=== PATIENT | male | born 1995 | race Hispanic/Latino ===

== ENCOUNTER 2017-02-14 20:39 | Emergency (ER) | payer SELFPAY ==
--- NOTE | 2017-02-14 22:45 | RAD ---
AP AND OBLIQUE VIEWS RIGHT RIBS 02/14/17 HISTORY: Patient with fall with right sided rib pain. AP and oblique views right ribs demonstrates old healed right 6th rib fracture. No definite evidence of right rib fractures seen. IMPRESSION: Old healed right 6th rib fracture. No acute right rib abnormality seen. POS: [facility]
== END 2017-02-14 23:02 | disposition home or self-care (01) ==
LOC: ERS 20:39
DX: S29.9XXA Unspecified injury of thorax, initial encounter (principal); M41.9 Scoliosis, unspecified; F17.210 Nicotine dependence, cigarettes, uncomplicated; W17.89XA Other fall from one level to another, initial encounter

== ENCOUNTER 2017-07-12 22:45 | Emergency (ER) | payer SELFPAY | END 2017-07-13 00:10 | disposition home or self-care (01) | LOC: ERS 22:45 | DX: M75.22 Bicipital tendinitis, left shoulder (principal); F17.210 Nicotine dependence, cigarettes, uncomplicated | CPT/HCPCS: 99283 ==

== ENCOUNTER 2017-09-17 11:14 | Emergency (ER) | payer SELFPAY ==
--- NOTE | 2017-09-17 12:58 | RAD ---
RIGHT SHOULDER THREE VIEWS: CLINICAL HISTORY: Injury. Pain. COMPARISON: 06/07/2014 FINDINGS: The right shoulder is intact without fracture or dislocation. IMPRESSION: No acute osseous abnormality. POS: [facility]
== END 2017-09-17 12:50 | disposition home or self-care (01) ==
LOC: ERS 11:14
DX: M25.511 Pain in right shoulder (principal); M41.9 Scoliosis, unspecified; F17.210 Nicotine dependence, cigarettes, uncomplicated; W01.198A Fall on same level from slipping, tripping and stumbling with subsequent striking against other object, initial encounter

== ENCOUNTER 2017-09-27 21:45 | Emergency (ER) | payer SELFPAY ==
[2017-09-28] MEDS ORDERED: diphenhydrAMINE 50 MG/ML VIAL ONE (01:54)
[2017-09-28] MEDS ORDERED: Acetaminophen 500 MG TAB ONE (01:54)
[2017-09-28] MEDS ORDERED: Promethazine HCl 25 MG/ML VIAL ONE (01:54)
== END 2017-09-28 03:55 | disposition home or self-care (01) ==
LOC: ERS 21:45
DX: J32.9 Chronic sinusitis, unspecified (principal); F17.210 Nicotine dependence, cigarettes, uncomplicated
CPT/HCPCS: 96365; 96375; J1200; J2550

== ENCOUNTER 2017-12-12 22:56 | Emergency (ER) | payer SELFPAY | END 2017-12-12 23:25 | disposition home or self-care (01) | LOC: ERS 22:56 | DX: J01.90 Acute sinusitis, unspecified (principal); F17.210 Nicotine dependence, cigarettes, uncomplicated | CPT/HCPCS: 87081; 87430; 99283 ==

== ENCOUNTER 2018-07-08 21:35 | Emergency (ER) | payer SELFPAY ==
[2018-07-08 22:33] LABS: Bilirubin Negative (Negative); Blood, Urine Negative (Negative); Clarity CLEAR (Clear); Glucose, Urine (Dipstick) Negative (Negative); Leukocyte Negative (Negative); Nitrite Negative (Negative); Protein, Urine (Dipstick) Negative (Neg-Trace); Specific Gravity, Urine 1.025 (1.002-1.036); pH, Urine 6.5 (5.0-9.0)
[2018-07-08] MEDS ORDERED: Ketorolac Tromethamine 30 MG/ML VIAL ONE (22:39)
== END 2018-07-08 23:21 | disposition home or self-care (01) ==
LOC: ERS 21:35
DX: M54.9 Dorsalgia, unspecified (principal); G89.29 Other chronic pain; F17.210 Nicotine dependence, cigarettes, uncomplicated
CPT/HCPCS: 81003; 96372; J1885

== ENCOUNTER 2018-10-29 14:12 | Emergency (ER) | payer SELFPAY ==
--- NOTE | 2018-10-29 14:42 | RAD ---
Exam: Chest 2 views HISTORY:Chest pain Comparison: November 21, 2010 FINDINGS: Lungs: Patchy left perihilar opacity. Lungs are mildly hyperinflated Cardiac silhouette: Normal size Pulmonary vessels: Normal Pleural Spaces: Clear Pneumothorax: None There is pectus excavatum. Osseous abnormalities: None of acuity. IMPRESSION: Patchy left perihilar opacity could relate to atelectasis or pneumonitis. Correlate clini tasneem.
[2018-10-29 14:44] LABS: #Basophils 0.1 thou/uL (0.0-0.2); #Eosinphils 0.1 thou/uL (0.0-0.7); #Lymphocytes 2.5 thou/uL (1.20-3.40); #Monocytes 0.5 thou/uL (0.11-0.59); #Neutrophils 3.6 thou/uL (1.40-6.50); %Basophils 1.5 % (0.0-1.0); %Eosinophils 1.1 % (0.0-10.0); %Neutrophils 53.5 % (42.0-75.0); Hemoglobin 17.5 g/dL (14.0-18.0); Mean Corpuscular HGB CONC 34.1 g/dL (32.0-36.0); Mean Corpuscular Hemoglobin 31.7 pg (27.0-31.0); Mean Corpuscular Volume 92.9 fL (78.0-98.0); Mean Platelet Volume 8.4 fL (7.4-10.4); Platelet Count 180 thou/uL (130-400); Red Blood Cell (RBC) Count 5.53 mill/uL (4.70-6.10); White Blood Cell (WBC) Count 6.7 thou/uL (4.8-10.8)
[2018-10-29 15:05] LABS: ALT (SGPT) 23 U/L (8-55); AST (SGOT) 14 U/L (5-34); Albumin 4.5 g/dL (3.5-5.0); Alkaline Phosphatase 77 U/L (40-150); Anion Gap 9 mmol/L (10-20); BUN (Urea Nitrogen) 11 mg/dL (8.9-20.6); Bilirubin, Total 0.7 mg/dL (0.2-1.2); CK (CPK) 86 U/L (30-200); Calc. Creatinine Clearance 0 mL/min (70-130); Calcium 9.7 mg/dL (7.8-10.44); Carbon Dioxide 32 mmol/L (22-29); Chloride 103 mmol/L (98-107); Estimated GFR-MDRD 90; Globulin 2.8 g/dL (2.4-3.5); Glucose 82 mg/dL (70-105); Potassium 4.8 mmol/L (3.5-5.1); Protein, Total 7.3 g/dL (6.0-8.3); Sodium 139 mmol/L (136-145)
[2018-10-29] MEDS ORDERED: Ketorolac Tromethamine 60 MG/2 ML VIAL ONE (16:53)
--- NOTE | 2018-11-01 11:58 | EKG ---
Test Reason : ER INDICATION Blood Pressure : / mmHG Vent. Rate : 078 BPM Atrial Rate : 078 BPM P-R Int : 136 ms QRS Dur : 074 ms QT Int : 342 ms P-R-T Axes : 068 025 053 degrees QTc Int : 389 ms Normal sinus rhythm Nonspecific ST abnormality Abnormal ECG Confirmed by MARINA RODGERS D.O. ([id number]), mapping editor RITU KWON ([id number]) on 11/01/2018 11:58:42 AM Referred By: Confirmed By:MARINA RODGERS D.O.
== END 2018-10-29 17:05 | disposition home or self-care (01) ==
LOC: ERS 14:12
DX: R07.89 Other chest pain (principal); F17.210 Nicotine dependence, cigarettes, uncomplicated
CPT/HCPCS: 36415; 71046; 80053; 82550; 84484; 85025; 93005; 96372; J1885

== ENCOUNTER 2019-03-15 17:20 | Emergency (ER) | payer SELFPAY ==
[2019-03-15] MEDS ORDERED: Ketorolac Tromethamine 30 MG/ML VIAL ONE (18:18)
[2019-03-15] MEDS ORDERED: Lorazepam 1 MG TAB ONE (18:19)
== END 2019-03-15 18:40 | disposition home or self-care (01) ==
LOC: ERS 17:20
DX: M54.5 Low back pain (principal); M25.512 Pain in left shoulder; F17.210 Nicotine dependence, cigarettes, uncomplicated
CPT/HCPCS: 96372; 99283; J1885

== ENCOUNTER 2021-01-26 10:56 | Emergency (ER) | payer OTHER, SELFPAY ==
[2021-01-26 11:37] LABS: #Basophils 0.1 thou/uL (0.0-0.2); #Eosinphils 0.1 thou/uL (0.0-0.7); #Lymphocytes 3.2 thou/uL (1.20-3.40); #Neutrophils 9.9 thou/uL (1.40-6.50); %Basophils 0.7 % (0.0-1.0); %Eosinophils 0.6 % (0.0-10.0); %Lymphocytes 22.5 % (21.0-51.0); %Monocytes 7.2 % (0.0-10.0); Mean Corpuscular HGB CONC 35.5 g/dL (32.0-36.0); Mean Corpuscular Hemoglobin 32.6 pg (27.0-31.0); Mean Corpuscular Volume 91.8 fL (78.0-98.0); Mean Platelet Volume 7.9 fL (7.4-10.4); Platelet Count 231 thou/uL (130-400); RBC Distribution Width 11.3 % (11.5-14.5); White Blood Cell (WBC) Count 14.3 thou/uL (4.8-10.8)
[2021-01-26 12:00] LABS: Acetaminophen Less than 6.0 mcg/mL (10.0-30.0); Alcohol Less than 10 mg/dL (Less than 10); Salicylate Less than 8.0 mg/dL (15.0-30.0)
[2021-01-26 12:02] LABS: ALT (SGPT) 25 U/L (8-55); AST (SGOT) 23 U/L (5-34); Albumin 4.6 g/dL (3.5-5.0); Alkaline Phosphatase 79 U/L (40-110); Anion Gap 13 mmol/L (10-20); BUN (Urea Nitrogen) 17 mg/dL (8.9-20.6); Bilirubin, Total 0.9 mg/dL (0.2-1.2); Calc. Creatinine Clearance 0 mL/min (70-130); Calcium 10.3 mg/dL (7.8-10.44); Carbon Dioxide 27 mmol/L (22-29); Chloride 103 mmol/L (98-107); Globulin 2.9 g/dL (2.4-3.5); Glucose 104 mg/dL (70-105); Potassium 4.3 mmol/L (3.5-5.1); Protein, Total 7.5 g/dL (6.0-8.3); Sodium 139 mmol/L (136-145)
[2021-01-26] MEDS ORDERED: Ondansetron PF 4 MG/2 ML Vial ONE (12:53)
[2021-01-26] MEDS ORDERED: Morphine 4 MG/ML VIAL ONE (12:53)
[2021-01-26] MEDS ORDERED: Boostrix 0.5 ML (Tdap) VIAL ONE (12:55)
[2021-01-26] MEDS ORDERED: Ketorolac Tromethamine 30 MG/ML VIAL ONE ×2 (12:55→12:57)
[2021-01-26 12:56] LABS: Bilirubin Negative (Negative); Blood, Urine Negative (Negative); Clarity Clear (Clear); Glucose, Urine (Dipstick) Normal (Negative); Ketone, Urine 10 mg/dL (Negative); Leukocyte Negative Leu/uL (Negative); Nitrite Negative (Negative); Protein, Urine (Dipstick) Negative (Neg-Trace); Specific Gravity, Urine 1.028 (1.002-1.036); Urobilinogen Normal mg/dL (Less than 2); pH, Urine 5.5 (5.0-9.0)
[2021-01-26 12:59] LABS: Amphetamine Detected (NotDetected); Barbiturates Screen Not Detected (NotDetected); Benzodiazepine Screen Not Detected (NotDetected); Cocaine Metabolite Screen Not Detected (NotDetected); Methadone Not Detected (NotDetected); Methamphetamine Detected (NotDetected); Opiate Screen Not Detected (NotDetected); Oxycodone Screen Not Detected (NotDetected); Phencyclidine (PCP) Not Detected (NotDetected); THC/Cannabinoid Screen Detected (NotDetected); Tricyclic Screen Not Detected (NotDetected)
[2021-01-26] MEDS ORDERED: Bacitracin 1 PK ONE (13:00)
== END 2021-01-26 13:50 | disposition home or self-care (01) ==
LOC: ERS 10:56
DX: S00.03XA Contusion of scalp, initial encounter (principal); S40.212A Abrasion of left shoulder, initial encounter; M54.2 Cervicalgia; M54.50 Low back pain, unspecified; M41.9 Scoliosis, unspecified; F17.210 Nicotine dependence, cigarettes, uncomplicated; Z23 Encounter for immunization; V19.9XXA Pedal cyclist (driver) (passenger) injured in unspecified traffic accident, initial encounter; Y93.55 Activity, bike riding; Y92.410 Unspecified street and highway as the place of occurrence of the external cause
CPT/HCPCS: 70450; 70486; 71045; 72125; 80053; 80306; 80307; 81003; 85025; 90471; 90715; 93005; 96374; 96375; J1885; J2270; J2405

== ENCOUNTER 2021-09-27 14:52 | Emergency (ER) | payer SELFPAY ==
[2021-09-27] MEDS ORDERED: Dicyclomine 20 MG TAB ONE (15:27)
[2021-09-27] MEDS ORDERED: Famotidine 20 MG TAB ONE (15:27)
[2021-09-27] MEDS ORDERED: Ondansetron ODT 4 MG TAB ONE (15:27)
== END 2021-09-27 15:50 | disposition home or self-care (01) ==
LOC: ERS 14:52
DX: R11.2 Nausea with vomiting, unspecified (principal); R19.7 Diarrhea, unspecified; M41.9 Scoliosis, unspecified; F17.210 Nicotine dependence, cigarettes, uncomplicated; Q67.6 Pectus excavatum
CPT/HCPCS: 99283; Q0162

== ENCOUNTER 2022-01-12 22:01 | Emergency (ER) | payer SELFPAY ==
[2022-01-12] MEDS ORDERED: Bupivacaine 0.25% 10 ML VIAL ONE (23:12)
== END 2022-01-13 00:36 | disposition home or self-care (01) ==
LOC: ERS 22:01
DX: S61.412A Laceration without foreign body of left hand, initial encounter (principal); F17.210 Nicotine dependence, cigarettes, uncomplicated; W26.8XXA Contact with other sharp object(s), not elsewhere classified, initial encounter
CPT/HCPCS: 12042; S0020

== ENCOUNTER 2022-12-13 10:25 | Emergency (ER) | payer OTHER, SELFPAY ==
[2022-12-13 11:01] LABS: #Basophils 0.1 thou/uL (0.0-0.2); #Eosinphils 0.1 thou/uL (0.0-0.7); #Monocytes 0.7 thou/uL (0.11-0.59); #Neutrophils 9.2 thou/uL (1.40-6.50); %Basophils 0.4 % (0.0-1.0); %Eosinophils 0.5 % (0.0-10.0); %Lymphocytes 16.2 % (21.0-51.0); %Monocytes 5.9 % (0.0-10.0); %Neutrophils 76.6 % (42.0-75.0); Hematocrit 48.5 % (42.0-52.0); Hemoglobin 17.8 g/dL (14.0-18.0); Mean Corpuscular HGB CONC 36.7 g/dL (32.0-36.0); Mean Corpuscular Hemoglobin 31.8 pg (27.0-31.0); Mean Corpuscular Volume 86.8 fl (78.0-98.0); Mean Platelet Volume 10.4 fL (7.4-10.4); Platelet Count 207 10x3/uL (130-400); RBC Distribution Width 11.7 % (11.5-14.5); Red Blood Cell (RBC) Count 5.59 mill/uL (4.70-6.10)
[2022-12-13] MEDS ORDERED: Boostrix 0.5 ML (Tdap) VIAL (>/=7 yrs of age) ONE (11:09)
[2022-12-13 11:22] LABS: Prothrombin Time 13.3 sec (12.0-14.7)
[2022-12-13 11:23] LABS: PTT 26.8 sec (22.9-36.1)
[2022-12-13 11:30] LABS: ALT (SGPT) 12 U/L (8-55); AST (SGOT) 13 U/L (5-34); Albumin 3.9 g/dL (3.5-5.0); Alkaline Phosphatase 65 U/L (40-110); BUN (Urea Nitrogen) 9 mg/dL (8.9-20.6); Bilirubin, Total 0.5 mg/dL (0.2-1.2); Calc. Creatinine Clearance 0 mL/min (70-130); Calcium 8.8 mg/dL (7.8-10.44); Carbon Dioxide 23 mmol/L (22-29); Chloride 116 mmol/L (98-107); Estimated GFR 104; Glucose 134 mg/dL (70-105); Potassium 3.1 mmol/L (3.5-5.1); Protein, Total 5.9 g/dL (6.0-8.3); Sodium 132 mmol/L (136-145)
[2022-12-13 11:49] LABS: Bacteria/HPF None Seen HPF (None Seen); Bilirubin Negative (Negative); Blood, Urine Negative (Negative); CAUTI Indications for Culture Acute Hematuria; Clarity Clear (Clear); Glucose, Urine (Dipstick) Normal (Negative); Ketone, Urine Negative (Negative); Leukocyte Negative Leu/uL (Negative); Nitrite Negative (Negative); Protein, Urine (Dipstick) Negative (Neg-Trace); RBC/HPF 0-3 HPF (0-3); Squamous Epithelial None Seen HPF (0-3); Urobilinogen Normal mg/dL (Less than 2); WBC/HPF 0-3 HPF (0-3)
[2022-12-13 11:53] LABS: Urine Culture Reflex No No
[2022-12-13] MEDS ORDERED: Ketorolac Tromethamine 30 MG/ML VIAL ONE (11:57)
[2022-12-13] MEDS ORDERED: Iopamidol-370 76% 500 ML MDV (1 ML CHARGE) ONE (12:50)
== END 2022-12-13 12:40 | disposition home or self-care (01) ==
LOC: ERS 10:25
DX: S09.90XA Unspecified injury of head, initial encounter (principal); S13.4XXA Sprain of ligaments of cervical spine, initial encounter; S49.91XA Unspecified injury of right shoulder and upper arm, initial encounter; S80.212A Abrasion, left knee, initial encounter; Z23 Encounter for immunization; F17.210 Nicotine dependence, cigarettes, uncomplicated; V13.4XXA Pedal cycle driver injured in collision with car, pick-up truck or van in traffic accident, initial encounter
CPT/HCPCS: 70450; 71045; 71260; 72125; 72170; 74177; 80053; 81001; 85025; 85610; 85730; 90471; 90715; 93005; 96374; J1885; Q9967